=== PATIENT | male | born 1980 | race African-American/Black ===

== ENCOUNTER 2023-09-06 07:30 | Emergency (ER) | payer OTHER, SELFPAY ==
[2023-09-06 07:37] VITALS: BP 148/80; PULSE 75; RESP 18; TEMP 36.8; O2SAT 99
--- NOTE | 2023-09-06 08:46 | ED.GENADULT ---
HPI - General Adult General Chief complaint: Skin/Abscess/Foreign Body Stated complaint: growth on testicle Time Seen by Provider: 09/06/23 08:30 History of Present Illness HPI narrative: 43-year-old male presented the ED for evaluation suppurative hidradenitis. patient reports he received the diagnosis approximately 6 months ago and was unable to see Dermatology due to his insurance. Patient states he does often have drainage from this. Patient denies any acute worsening of this. Related Data Home Medications Medication Instructions Recorded Confirmed allopurinol 300 mg tablet 300 mg PO DAILY 09/06/23 09/06/23 amlodipine 5 mg tablet 5 mg PO DAILY 09/06/23 09/06/23 atorvastatin 10 mg tablet 10 mg PO DAILY 09/06/23 09/06/23 hydrochlorothiazide 25 mg tablet 25 mg PO DAILY 09/06/23 09/06/23 metformin 500 mg tablet 500 mg PO BID 09/06/23 09/06/23 Allergies Allergy/AdvReac Type Severity Reaction Status Date / Time No Known Allergies Allergy Unknown Verified 09/06/23 08:16 Review of Systems Review of Systems: All systems reviewed & are unremarkable except as noted in HPI and below PMFSH Social History Social History (System 01/17/23 @ 08:02 by Hebert Alston) Smoking status: Never smoker Alcohol intake: never Exam Narrative: APPEARANCE: Well appearing, no pain, no distress, well-nourished. HEAD: normocephalic, atraumatic. EYES: PERRLA/EOMI, conjunctivae clear. NOSE: Normal no drainage EARS:TMS clear with good light reflex. THROAT: Pharynx clear, no exudate. NECK: Supple. No adenopathy, no masses. RESPIRATORY: Airway patent, respirations nonlabored. Clear to auscultation bilaterally, no rales, rhonchi, wheezing. CARDIOVASCULAR: Regular rate and rhythm without murmurs rubs or gallops. ABDOMINAL: Soft, nontender, nondistended, normal bowel sounds MUSCULOSKELETAL: Moves all extremities. Strength/ROM intact, No edema, No calf tenderness. NEURO: Alert. Cranial nerves II through XII intact. Good gait. Good coordination SKIN: Hidradenitis of left scrotum. no fluctuance palpated. patient is having some drainage but no abscess amenable to drainage was identified. Course Course Emergency Course: 43-year-old female presenting to the emergency department for evaluation for worsening hidradenitis on his scrotum. Patient was started on antibiotics and patient was provided follow-up with primary care physician along with numbers to call for Dermatology. Patient eloped from the emergency department prior to receiving his discharge papers Vital Signs Vital signs: Vital Signs Temperature 98.3 F 09/06/23 07:37 Pulse Rate 75 09/06/23 07:37 Respiratory Rate 18 09/06/23 07:37 Blood Pressure 148/80 H 09/06/23 07:37 Pulse Oximetry 99 09/06/23 07:37 Oxygen Delivery Room Air 09/06/23 07:37 Temperature 98.3 F 09/06/23 07:37 Pulse Rate 62 09/06/23 09:08 Respiratory Rate 18 09/06/23 09:08 Blood Pressure 127/71 09/06/23 09:08 Pulse Oximetry 100 09/06/23 09:08 Oxygen Delivery Room Air 09/06/23 07:37 Medical Decision Making Differential Diagnosis Differential Diagnosis: hidradenitis, cellulitis, abscess Vital Signs Vital Signs: Vital Signs Temperature 98.3 F 09/06/23 07:37 Pulse Rate 75 09/06/23 07:37 Respiratory Rate 18 09/06/23 07:37 Blood Pressure 148/80 H 09/06/23 07:37 Pulse Oximetry 99 09/06/23 07:37 Oxygen Delivery Room Air 09/06/23 07:37 Temperature 98.3 F 09/06/23 07:37 Pulse Rate 62 09/06/23 09:08 Respiratory Rate 18 09/06/23 09:08 Blood Pressure 127/71 09/06/23 09:08 Pulse Oximetry 100 09/06/23 09:08 Oxygen Delivery Room Air 09/06/23 07:37 Discharge Plan Discharge Clinical Impression: Hidradenitis Patient Disposition: Home, Self-Care Condition: Stable Instructions: Antibiotic Form, Hidradenitis Suppurativa (ED) Additional Instructions: Antibiotic as directed until completed. Have becky
[2023-09-06 09:08] VITALS: BP 127/71; PULSE 62; RESP 18; O2SAT 100
[2023-09-06] MEDS: CLINDAMYCIN HCL 150 MG CAP 300 MG PO (09:09)
--- NOTE | 2023-09-06 09:21 | PC.NURSE ---
This RN went to pt room with discharge papers and pt was no longer in room. This RN searched for pt and was told by security they saw pt leave the ER. This RN attempted to call pt and did not receive an answer. luggage liner informed
== END 2023-09-06 09:25 | disposition home or self-care (01) ==
PROVIDERS: Emergency Provider Emergency Medicine
DX: L73.2 Hidradenitis suppurativa (principal); Z79.84 Long term (current) use of oral hypoglycemic drugs
CPT/HCPCS: 99283; A9270